=== PATIENT | female | born 1960 | race Caucasian/White ===

== ENCOUNTER 2017-02-13 10:42 | Emergency (ER) | payer MEDICARE, OTHER ==
[2017-02-13 10:51] VITALS: BP 103/84; PULSE 77; TEMP 98; BMI 35.2
--- NOTE | 2017-02-13 12:04 | PDOC ---
History of Present Illness - History of Present Illness Initial Comments: 02/13/17 12:14 The patient is a 56 year old female, [place] with a significant past medical history of hypercholesterolemia, HTN, and sleep apnea, who presents to the emergency department s/p witnessed syncopal episode by friend. Patient states that she was standing in the pantry when she had onset of light-headedness and syncopized while standing. Patient reports after losing consiousness, falling onto the floor and losing consciousness for approximately one second. She denies any confusion after passing out. Patient denies any head strike .Patient reports after syncopal episode, falling again after trying to stand. She denies any LOC or head trauma after her second fall. Patient reports having similar episode approximately 10 years ago and was told it was likely 2/2 "heat." Patient reports feeling nausea last night but otherwise has been in her USOGH. She denies recent fevers, chills, headache or dizziness. She denies recent vomit , diarrhea or constipation. She denies recent dysuria, frequency, urgency or hematuria. She denies chest pain or shortness of breath before or after passing out. Denies urine or stool incontinence or tongue biting after passing out. Allergies: NKA Past surgical history: Hernia repair x2 (most recent 1 year ago.) Social history: Former smoker (clean for 6 years) Primary Care Physician: Hand Clipper: <Derick Dias - Last Filed: 02/13/17 12:13> <Mita Petersen - Last Filed: 02/14/17 19:57> - General Chief Complaint: Syncope/Near Syncope Stated Complaint: NEAR SYNCOPE Time Seen by Provider: 02/13/17 10:52 Past History <Derick Dias - Last Filed: 02/13/17 12:13> - Past Medical History Anemia: No Asthma: (SLEEP APNEA) Cancer: No Cardiac Disorders: No CVA: No COPD: No CHF: No Dementia: No Diabetes: No GI Disorders: Yes (HERNIA) Disorders: No HTN: Yes Hypercholesterolemia: Yes Liver Disease: No Seizures: No Thyroid Disease: No - Surgical History Abdominal Surgery: Yes (HERNIA REPAIR) Appendectomy: No Cardiac Surgery: No Cholecystectomy: No Lung Surgery: No Neurologic Surgery: No Orthopedic Surgery: No - Psycho/Social/Smoking Cessation Hx Anxiety: No Suicidal Ideation: No Smoking History: Former smoker Have you smoked in the past 12 months: No If you are a former smoker, when did you quit?: 2008 Information on smoking cessation initiated: No Hx Alcohol Use: No Drug/Substance Use Hx: No Substance Use Type: Alcohol, Cocaine, 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) <Mita Petersen - Last Filed: 02/14/17 19:57> - Past Medical History Allergies/Adverse Reactions: Allergies Allergy/AdvReac Type Severity Reaction Status Date / Time Penicillins Allergy Severe Rash Verified 02/13/17 10:45 Home Medications: Ambulatory Orders Aspirin [ASA -] 81 mg PO DAILY 02/11/15 Lisinopril [Prinivil -] 20 mg PO DAILY 02/11/15 Loratadine [Claritin -] 10 mg PO PRN PRN 02/11/15 Mometasone Furoate [Nasonex] 1 - 2 inh NS PRN PRN 02/11/15 Multivit-Min/FA/Lycopen/Lutein [Centrum Silver Tablet] 1 each PO DAILY 02/11/15 Pravastatin Sodium 20 mg PO DAILY 02/11/15 Vitamin B Complex 1 each PO DAILY 02/11/15 Diclofenac Sodium [Voltaren -] 75 mg PO BID 10/24/15 Docusate Sodium [Colace -] 100 mg PO TID #90 capsule 12/19/15 Oxycodone HCl/Acetaminophen [Percocet 5-325 mg Tablet] 1 - 2 tab PO Q4H #20 tablet MDD 6 12/19/15 Review of Systems - Review of Systems Comments:: 02/13/17 12:14 GENERAL/CONSTITUTIONAL: No fever or chills. No weakness. HEAD, EYES, EARS, NOSE AND THROAT: No change in vision. No ear pain or discharge. No sore throat. CARDIOVASCULAR: No chest pain or shortness of breath. RESPIRATORY: No cough, wheezing, or hemoptysis. GASTROINTESTINAL: +nausea, no vomiting, diarrhea or constipation. GENITOURINARY: No dysuria, frequency, or change in urination. MUSCULOSKELETAL: No joint or muscle swelling or pain. No neck or back pain. SKIN: No rash NEUROLOGIC: +LOC. No headache, vertigo, loss of consciousness, or change in strength/sensation. ENDOCRINE: No increased thirst. No abnormal weight change. HEMATOLOGIC/LYMPHATIC: No anemia, easy bleeding, or history of blood clots. ALLERGIC/IMMUNOLOGIC: No hives or skin allergy. <Derick Dias - Last Filed: 02/13/17 12:13> *Physical Exam - Vital Signs Last Vital Signs Temp Pulse Resp BP Pulse Ox 98 F 77 18 103/84 98 02/13/17 10:45 02/13/17 10:45 02/13/17 10:45 02/13/17 10:45 02/13/17 10:45 - Physical Exam Comments: 02/13/17 12:15 GENERAL: Awake, alert, and fully oriented, in no acute distress HEAD: No signs of trauma EYES: PERRLA, EOMI, sclera anicteric, conjunctiva clear ENT: Auricles normal inspection, hearing grossly normal, nares patent, oropharynx clear without exudates.Dry mucous membranes NECK: Normal ROM, supple, no lymphadenopathy, JVD, or masses. No midline c- spine ttp. LUNGS: Breath sounds equal, clear to auscultation bilaterally. No wheezes, and no crackles HEART: Regular rate and rhythm, normal S1 and S2, no murmurs, rubs or gallops ABDOMEN: Soft, nontender, normoactive bowel sounds. No guarding, no rebound. No masses EXTREMITIES: Normal range of motion, no edema. No clubbing or cyanosis. No cords , erythema, or tenderness NEUROLOGICAL: Normal speech, cranial nerves intact, negative pronator drift, 5/ 5 strength in all 4 extremities, normal sensation to light touch in all 4 extremities, normal cerebellar exam, normal gait, normal reflexes and tone SKIN: Warm, Dry, normal turgor, no rashes or lesions noted. MSK: No midline spinal ttp <Derick Dias - Last Filed: 02/13/17 12:13> - Vital Signs Last Vital Signs Temp Pulse Resp BP Pulse Ox 98 F 77 18 103/84 98 02/13/17 10:45 02/13/17 10:45 02/13/17 10:45 02/13/17 10:45 02/13/17 10:45 <Mita Petersen - Last Filed: 02/14/17 19:57> ED Treatment Course - LABORATORY CBC & Chemistry Diagram: 02/13/17 12:17 02/13/17 12:17 - RADIOLOGY Radiology Studies Ordered: Category Date Time Status CHEST PA & LAT [RAD] Stat Radiology 02/13/17 11:58 Ordered <Mita Petersen - Last Filed: 02/14/17 19:57> Medical Decision Making - Medical Decision Making 02/13/17 13:21 56-year-old female history of hypertension and hyperlipidemia presents with syncope. Exam and vitals within normal limits, EKG nonischemic and with no signs of arrhythmia. Likely vasovagal syncope as pt has had previous episodes of syncope when it was hot outside. Prodrome of lightheadedness and short period of loss of consciousness also consistent with vasovagal syncope. Will check blood work and chest x-ray and call patient's mathematics professor. -labs -shelter monitor -CXR -IVF -reassess 02/13/17 13:24 Labs are unremarkable. Chest x-ray is pending. Laboratory 02/13/17 02/13/17 02/13/17 12:03 12:04 12:17 WBC 6.8 K/mm3 D K/mm3 (4.0-10.0) RBC 4.77 M/mm3 M/mm3 (3.60-5.2) Hgb 14.3 GM/dL GM/dL (10.7-15.3) Hct 43.5 % % (32.4-45.2) MCV 91.1 fl fl (80-96) MCH 29.9 pg pg (25.7-33.7) MCHC 32.8 g/dl g/dl (32.0-36.0) RDW 13.1 % % (11.6-15.6) Plt Count 231 K/MM3 K/MM3 (134-434) MPV 9.0 fl fl (7.5-11.1) Neutrophils % 69.0 % D % (42.8-82.8) Lymphocytes % 22.3 % D % (8-40) Monocytes % 7.4 % % (3.8-10.2) Eosinophils % 0.8 % % (0-4.5) Basophils % 0.5 % % (0-2.0) Sodium Potassium Chloride Carbon Dioxide Anion Gap BUN Creatinine Creat Clearance w eGFR Random Glucose Calcium Magnesium Total Bilirubin AST ALT Alkaline Phosphatase Troponin I < 0.02 ng/ml ng/ml (0.00-0.05) B-Natriuretic Peptide 28.69 pg/ml pg/ml (5-125) Total Protein Albumin 02/13/17 12:17 WBC RBC Hgb Hct MCV MCH MCHC RDW Plt Count MPV Neutrophils % Lymphocytes % Monocytes % Eosinophils % Basophils % Sodium 139 mmol/L mmol/L (136-145) Potassium 5.0 mmol/L D mmol/L (3.5-5.1) Chloride 101 mmol/L mmol/L (98-107) Carbon Dioxide 33 mmol/L H mmol/L (21-32) Anion Gap 5 L (8-16) BUN 22 mg/dL H mg/dL (7-18) Creatinine 1.0 mg/dL mg/dL (0.55-1.02) Creat Clearance w eGFR 57.78 (>60) Random Glucose 102 mg/dL mg/dL (74-106) Calcium 9.8 mg/dL mg/dL (8.5-10.1) Magnesium 2.6 mg/dL H mg/dL (1.8-2.4) Total Bilirubin 0.5 mg/dL D mg/dL (0.2-1.0) AST 17 U/L D U/L (15-37) ALT 27 U/L D U/L (12-78) Alkaline Phosphatase 84 U/L U/L (45-117) Troponin I B-Natriuretic Peptide Total Protein 7.6 g/dl g/dl (6.4-8.2) Albumin 4.2 g/dl g/dl (3.4-5.0) 02/13/17 16:04 BUN is mildly elevated to 22. Otherwise labs are unremarkable. Chest x-ray is negative. I spoke with Dr. Downey who was covering for Dr. Morejon about the pt's presentation and findings. He will reach out to the pt's PMD Dr. Morataya and call me back. 02/13/17 17:17 Dr. Morejon call me back and reports that he spoke with Dr. Morataya. He reports that Dr. Morataya did a full cardiac workup one year ago for clearance for her hernia surgery. Given her benign workup and fairly recent workup as well as a story that most likely consistent with vasovagal syncope Dr. Morejon is okay with us discharging the patient so long as she continues to be asymptomatic. I am currently unable to find the patient. I have asked the nurse to also look for the patient however she may have walked out. Will continue to look for patient. <Mita Petersen - Last Filed: 02/14/17 19:57> *DC/Admit/Observation/Transfer - Attestations Scribe Attestion: 02/13/17 12:15 Documentation prepared by Derick Dias, acting as curator medical museum for Mita Petersen MD. <Derick Dias - Last Filed: 02/13/17 12:13> - Attestations Physician Attestion: 02/14/17 19:57 I, Dr. Mita Petersen MD, attest that this document has been prepared under my direction and personally reviewed by me in its entirety. I further attest, that it accurately reflects all work, treatment, procedures and medical decision -making performed by me. <Mita Petersen - Last Filed: 02/14/17 19:57> Diagnosis at time of Disposition: Eloped - Discharge Dispostion Disposition: ELOPED - Referrals Referrals: Rachel Morataya [Primary Care Provider] -
[2017-02-13 12:37] LABS: BASOPHIL 0.5 % (0-2.0); EOSINOPHIL 0.8 % (0-4.5); MCH 29.9 pg (25.7-33.7); MCHC 32.8 g/dl (32.0-36.0); MEAN CELL VOLUME 91.1 fl (80-96); PLATELET COUNT 231 K/MM3 (134-434); RDW 13.1 % (11.6-15.6); WHITE BLOOD COUNT 6.8 K/mm3 (4.0-10.0)
[2017-02-13 13:04] LABS: ALBUMIN 4.2 g/dl (3.4-5.0); ANION GAP 5 (8-16); CALCIUM 9.8 mg/dL (8.5-10.1); CO2 33 mmol/L (21-32); GLUCOSE,RANDOM 102 mg/dL (74-106); MAGNESIUM 2.6 mg/dL (1.8-2.4)
[2017-02-13 13:07] LABS: ALK PHOS 84 U/L (45-117); BILIRUBIN,TOTAL 0.5 mg/dL (0.2-1.0); SGOT/AST 17 U/L (15-37); SGPT/ALT 27 U/L (12-78); TOT PROT 7.6 g/dl (6.4-8.2)
--- NOTE | 2017-02-13 14:34 | EKG ---
Test Reason : Blood Pressure : / mmHG Vent. Rate : 067 BPM Atrial Rate : 067 BPM P-R Int : 150 ms QRS Dur : 118 ms QT Int : 404 ms P-R-T Axes : 048 -09 014 degrees QTc Int : 426 ms NORMAL SINUS RHYTHM LEFT VENTRICULAR HYPERTROPHY WITH QRS WIDENING ABNORMAL ECG WHEN COMPARED WITH ECG OF 12-DEC-2015 12:27, NO SIGNIFICANT CHANGE WAS FOUND Confirmed by CLINTON WARNER MD ([id number]) on 02/13/2017 2:33:51 PM Referred By: Confirmed By:CLINTON WARNER MD
== END 2017-02-13 15:00 | disposition left against medical advice (07) ==
LOC: JER 10:42
DX: R55 Syncope and collapse (principal); I10 Essential (primary) hypertension; E78.00 Pure hypercholesterolemia, unspecified; G47.30 Sleep apnea, unspecified; Z87.891 Personal history of nicotine dependence; Z79.82 Long term (current) use of aspirin
CPT/HCPCS: 36415; 71020-TC; 80053; 83735; 83880; 84484; 85025; 93005; 93010; 99282-25

== ENCOUNTER 2018-12-03 09:43 | Emergency (ER) | payer OTHER | END 2018-12-03 10:46 | disposition home or self-care (01) | LOC: JERFT 09:43 ==

== ENCOUNTER 2020-01-02 15:39 | Emergency (ER) | payer OTHER ==
[2020-01-02 15:54] VITALS: BP 118/72; PULSE 81; TEMP 98.7; BMI 38.7
== END 2020-01-02 17:35 | disposition home or self-care (01) ==
LOC: JERFT 15:39
DX: M25.561 Pain in right knee (principal)
CPT/HCPCS: 73562-TC-RT-FY; 99283-25

== ENCOUNTER 2020-06-19 11:23 | Emergency (ER) | payer OTHER ==
[2020-06-19 11:29] VITALS: BP 113/69; PULSE 87; TEMP 97.8; BMI 38.7
[2020-06-19] MEDS ORDERED: IBUPROFEN 600 MG TABLET (FP) PO ONE ×2 (11:58→11:59)
== END 2020-06-19 12:28 | disposition home or self-care (01) ==
LOC: JERFT 11:23
DX: M25.532 Pain in left wrist (principal); M25.562 Pain in left knee
CPT/HCPCS: 73110-TC-LT-FY; 73130-TC-LT-FY; 73562-TC-LT-FY; 99284-25

== ENCOUNTER 2020-11-10 14:55 | Emergency (ER) | payer OTHER ==
[2020-11-10 15:09] VITALS: BP 123/81; PULSE 83; TEMP 98.7; BMI 39.6
== END 2020-11-10 16:56 | disposition home or self-care (01) ==
LOC: JERFT 14:55
DX: S29.012A Strain of muscle and tendon of back wall of thorax, initial encounter (principal)
CPT/HCPCS: 99283-25

== ENCOUNTER 2022-03-27 09:04 | Emergency (ER) | payer OTHER ==
[2022-03-27 09:18] VITALS: BP 123/76; PULSE 78; RESP 18; BMI 38.7
[2022-03-27 09:19] VITALS: TEMP 98
[2022-03-27 12:04] LABS: BASO % 0.6 % (0-2.0); EOS % 2.5 % (0-4.5); HEMATOCRIT 39.4 % (32.4-45.2); HEMOGLOBIN 13.3 GM/dL (10.7-15.3); LYMPH % 46.5 % (8-40); MCH 30.4 pg (25.7-33.7); MCHC 33.7 g/dl (32.0-36.0); MEAN CELL VOLUME 90.3 fl (80-96); MEAN PLT VOLUME 8.6 fl (7.5-11.1); MONO % 10.6 % (3.8-10.2); NEUT % 39.8 % (42.8-82.8); PLATELET COUNT 224 10^3/uL (134-434); RBC 4.37 M/mm3 (3.60-5.2); WHITE BLOOD COUNT 5.2 K/mm3 (4.0-10.0)
[2022-03-27 12:09] LABS: EPI CELLS 23 /uL (0-25.1); HYALINE CASTS 1 /uL (0-3.1); PH,URINE 5.5 (5.0-8.0); URINE APPEARANCE CLEAR; URINE BACTERIA 264 /uL (0-1359); URINE BILIRUBIN NEGATIVE (NEGATIVE); URINE COLOR YELLOW; URINE GLUCOSE (UA) NEGATIVE (NEGATIVE); URINE KETONE NEGATIVE (NEGATIVE); URINE LEUK ESTERASE TRACE (NEGATIVE); URINE NITRITE NEGATIVE (NEGATIVE); URINE PROTEIN NEGATIVE (NEGATIVE); URINE UROBILINOGEN 0.2 mg/dL (0.2-1.0); URINE WBC 33 /uL (0-25.8)
[2022-03-27 12:23] LABS: ALBUMIN 3.9 g/dl (3.4-5.0); BLOOD UREA NITROGEN 20.8 mg/dL (7-18); CALCIUM 9.3 mg/dL (8.5-10.1)
[2022-03-27 12:26] LABS: CREATININE 0.9 mg/dL (0.55-1.3)
[2022-03-27 12:28] LABS: BILIRUBIN,TOTAL 0.6 mg/dL (0.2-1); TOT PROT 7.1 g/dl (6.4-8.2)
[2022-03-27 12:51] LABS: URINE RBC 57.7 /uL (0-23.9)
== END 2022-03-27 13:51 | disposition home or self-care (01) ==
LOC: JER 09:04
DX: N95.0 Postmenopausal bleeding (principal); M54.50 Low back pain, unspecified
CPT/HCPCS: 36415; 72100-TC-FY; 76830-TC; 80053; 81003; 85025; 87086; 99284-25

== ENCOUNTER 2024-03-04 09:08 | Emergency (ER) | payer OTHER ==
[2024-03-04 09:16] VITALS: BP 127/79; PULSE 83; RESP 18; TEMP 98; BMI 39.0
[2024-03-04] MEDS ORDERED: KETOROLAC TROMETHAMINE 30 MG/1 ML VIAL ONE (10:06)
[2024-03-04] MEDS: KETOROLAC TROMETHAMINE 30 MG/1 ML VIAL IM ONE (10:09)
== END 2024-03-04 10:18 | disposition home or self-care (01) ==
LOC: JERFT 09:08
PROC: 3E0333Z Introduction of Anti-inflammatory into Peripheral Vein, Percutaneous Approach (ICD-10-PCS; principal; 2024-03-04)
DX: S80.02XA Contusion of left knee, initial encounter (principal); W01.0XXA Fall on same level from slipping, tripping and stumbling without subsequent striking against object, initial encounter
CPT/HCPCS: 73562-TC-LT-FY; 99284-25

== ENCOUNTER 2025-03-04 06:25 | Day surgery (SDC) | payer OTHER ==
[2025-03-01 12:26] VITALS: BMI 40.3
[2025-03-04] MEDS ORDERED: DEXAMETHASONE SOD PHOSPHATE 10 MG/1 ML VIAL ONE (07:32)
[2025-03-04] MEDS ORDERED: LIDOCAINE HCL/PF 1% SDV 5ML VIAL ONE (11:30)
[2025-03-04 13:10] VITALS: RESP 20
[2025-03-04 15:30] VITALS: BP 128/85; PULSE 80; TEMP 97.3
== END 2025-03-04 14:50 | disposition home or self-care (01) ==
LOC: JASU-SURG 06:25
PROVIDERS: ATTEND Pain Medicine Pain Medicine
PROC: 3E0R3BZ Introduction of Anesthetic Agent into Spinal Canal, Percutaneous Approach (ICD-10-PCS; 2025-03-04)
PROC: 3E0R33Z Introduction of Anti-inflammatory into Spinal Canal, Percutaneous Approach (ICD-10-PCS; principal; 2025-03-04 13:51)
DX: M54.16 Radiculopathy, lumbar region (principal)
CPT/HCPCS: 76000-TC-FY; J1100